=== PATIENT | male | born 1995 | race Caucasian/White ===

== ENCOUNTER 2019-05-02 12:09 | Emergency (ER) | payer BC, OTHER ==
[~2019-05-02] VITALS: Ht 177.8 cm; Wt 149.2 kg
--- NOTE | 2019-05-02 12:40 | Diagnostic Imaging Report ---
INDICATION: Abdominal pain. TIME OF EXAM: 12:07 PM The heart size is normal. Lungs are clear. No free air is detected. The bowel gas pattern is nonobstructive. No pathologic calcifications are seen. IMPRESSION: No acute abnormality is detected. Dictated by: Dictated on workstation # [id number]
--- NOTE | 2019-05-02 13:37 | ED GI ---
General Chief Complaint: Abdominal/GI Problems Stated Complaint: COMSTIPATION Nursing Triage Note: Patient reports he has been constipated for 9-10 days, states he has taken mag citrate, dulcolax, and 2 tap water enemas at home without good results. He states he went to walk-in care two days ago and was told to take miralax, so he took the max daily dose for last two days without good results. He states his stools are clear liquid. He reports he is still eating and drinking normally, denies any nausea/vomiting, states some mild intermittent abdominal and back pain. States he was told by walk-in care to come to the ED if he had not had a bowel movement in 48 hours. Sepsis Screen: No Definite Risk Source of Information: Patient History of Present Illness Date Seen by Provider: May 02, 2019 Time Seen by Provider: 13:37 Initial Comments 24-year-old male presenting with complaints that he has not had a good bowel movement for at least 9-10 days. He denies having any abdominal pain or nausea or vomiting. He also denies any change in his diet. He was having some right posterior flank pain and there some concern he might have a urinary tract infection but when he was seen 2 days ago in the urgent care his urine was clear. They did an x-ray and told him that he had a large ball of stool and to aggressively take MiraLAX until clear. He had been taking several doses of MiraLAX and was only getting watery liquid out. He denied any large amount of stool coming out. He was continuing to eat and drink without any abdominal pain or nausea or vomiting. His right flank pain was resolved after starting the MiraLAX. However he was told if he didn't have a large amount of stool come out by morning to come to the emergency department. Allergies and Home Medications Allergies Coded Allergies: No Known Drug Allergies (Unverified , 05/02/19) Patient Home Medication List Home Medication List Reviewed: Yes Review of Systems Review of Systems Constitutional: No chills, No dizziness, No fever, No malaise EENTM: No Symptoms Reported Respiratory: No Symptoms Reported Cardiovascular: No Symptoms Reported Gastrointestinal: See HPI, Abdomen Distended (since taken the MiraLAX and multiple laxatives he has had increased bloating and gas); Denies Abdominal Pain, Denies Blood Streaked Stools; Constipated; Denies Difficulty Swallowing, Denies Nausea, Denies Poor Appetite, Denies Poor Fluid Intake, Denies Rectal Bleeding, Denies Vomiting Genitourinary: No Symptoms Reported Musculoskeletal: no symptoms reported Skin: no symptoms reported Psychiatric/Neurological: No Symptoms Reported Endocrine: No Symptoms Reported Past Dvixcea-Kgzisv-Csrbef Hx Past Med/Social Hx: Reviewed Nursing Past Med/Soc Hx Patient Social History Alcohol Use: Denies Use Recreational Drug Use: No Smoking Status: Never a Smoker 2nd Hand Smoke Exposure: No Recent Foreign Travel: No Contact w/Someone Who Travel: No Recent Infectious Disease Expo: No Recent Hopitalizations: No Physical Abuse: No Sexual Abuse: No Mistreated: No Fear: No Seasonal Allergies Seasonal Allergies: No Past Medical History Surgeries: Yes Adenoidectomy, Tonsillectomy Respiratory: No Cardiac: No Neurological: No Genitourinary: No Gastrointestinal: No Musculoskeletal: No Endocrine: No HEENT: No Cancer: No Psychosocial: No Integumentary: No Physical Exam Vital Signs Vital Signs - First Documented 05/02/19 12:16 Temp 36.7 Pulse 95 Resp 16 B/P (MAP) 183/114 (137) Pulse Ox 96 O2 Delivery Room Air Capillary Refill : Less Than 3 Seconds Height/Weight/BMI Height: '" Weight: lbs. oz. kg; 47.00 BMI Method: General Appearance: WD/WN, no apparent distress, obese HEENT: PERRL/EOMI, normal ENT inspection, pharynx normal Neck: non-tender, full range of motion, supple Respiratory: chest non-tender, lungs clear, normal breath sounds, no respiratory distress, no accessory muscle use Cardiovascular: normal peripheral pulses, regular rate, rhythm Gastrointestinal: non tender, soft, no pulsatile mass, abnormal bowel sounds (hyperactive) Rectal: deferred Extremities: normal range of motion, non-tender, normal capillary refill Back: no CVA tenderness Neurologic/Psychiatric: alert, normal mood/affect, oriented x 3 Skin: normal color, warm/dry Progress/Results/Core Measures Results/Orders My Orders Orders - MARY GALAVIZ MD Acute Abd Series (05/02/19 12:21) Vital Signs/I&O 05/02/19 05/02/19 12:16 14:30 Temp 36.7 Pulse 95 77 Resp 16 18 B/P (MAP) 183/114 (137) 142/85 Pulse Ox 96 98 O2 Delivery Room Air Room Air Blood Pressure Mean: 137 POS Progress Progress Note : Progress Note Acute abdomen series was obtained prior to my evaluation of the patient. This did not show any obstructive pattern or significant amount of stool. He did have increased stool on the right: And had a nonspecific gas pattern. There is no sign of obstruction or free air. I discussed with him and his about other testing such as blood work and CT scan however with him not having any pain and no nausea or vomiting this likely would not show anything significant right now. He could certainly have this done as an outpatient and get established with clinic if he continued to have issues. Since he was not having pain in his exam was benign otherwise he opted to wait and continue with fluids, increase fiber in his diet, and daily MiraLAX. Advised to check through the clinic for establishing primary care. Advised if he started having fever, abdominal pain, nausea and vomiting that he should return for CT scan and more aggressive evaluation Diagnostic Imaging Diagonstic Imaging: Xray Plain Films/CT/US/NM/MRI: abdomen Comments NAME: [facility]ST[facility] REC#: [id number] PT STATUS: REG ER : 1995 PHYSICIAN: MARY GALAVIZ MD ADMIT DATE: 05/02/19/ER FS Draft POSDate of Exam:05/02/19 ACUTE ABD SERIES INDICATION: Abdominal pain. TIME OF EXAM: 12:07 PM The heart size is normal. Lungs are clear. No free air is detected. The bowel gas pattern is nonobstructive. No pathologic calcifications are seen. IMPRESSION: No acute abnormality is detected. Dictated on workstation # [id number] Dict: 05/02/19 1239 Trans: 05/02/19 1240 CV [id number] Interpreted by: TAM RENAE MD Electronically signed by: Departure Impression Primary Impression: Constipation Qualified Codes: K59.00 - Constipation, unspecified Disposition: HOME, SELF-CARE Condition: Stable Departure-Patient Inst. Decision time for Depature: 14:15 Referrals: DEON MERRILL MD (PCP/Family) Primary Care Physician [facility] Patient Instructions: Constipation, Adult (DC), High Fiber Diet Add. Discharge Instructions: Increase the fiber in your diet. Make sure you are drinking plenty of water and electrolyte drinks. Try eating small frequent meals instead of just 1 big meal a day. If you have sharp abdominal pain, nausea with vomiting, or fever then return or seek medical care for further evaluation such as a CT scan of your abdomen. Establish care with a primary provider through the clinic for outpatient testing and follow up for your bowels. All discharge instructions reviewed with patient and/or family. Voiced understanding. Work/School Note: Work Release Form Date Seen in the Emergency Department: May 02, 2019 Return to Work: May 03, 2019 Restrictions: No Restrictions MARY GALAVIZ MD May 02, 2019 13:37 POS
[2019-05-02 14:30] VITALS: BP 142/85
--- OUTSIDE RECORDS SUMMARY | 2019-05-28 13:49 | XMS REPORT | Continuity of Care Document ---
Author Organization Unknown Address Unknown Phone Unavailable Allergies Active Description Code Type Severity Reaction Onset Reported/Identified Relationship to Patient Clinical Status Yes No Known Drug Allergies [id number] Drug Allergy Unknown N/A 05/02/2019 Medications There is no data. Problems Date Dx Coded Attending Type Code Diagnosis Diagnosed By 05/06/2019 ANASTACIA RAUSCH, MARY Bustillo Ot K59.0 0 CONSTIPATION, UNSPECIFIED 05/06/2019 ANASTACIA RAUSCH, MARY Bustillo Ot Z90.8 9 ACQUIRED ABSENCE OF OTHER ORGANS Procedures There is no data. Results There is no data. Encounters ACCT No. Visit Date/Time Discharge Status Pt. Type Provider Facility Loc./Unit Complaint [id number] 03/05/2019 07:00:00 03/05/2019 23:59:5 9 [facility] [id number] 05/02/2019 12:12:00 019 14:30:00 DIS Outpatient MARY GALAVIZ MD [facility] ER FS COMSTIPATION
== END 2019-05-02 14:30 | disposition home or self-care (01) ==
LOC: EDUNIT# 12:09 → ER FS 12:12
DX: K59.00 Constipation, unspecified (principal); Z90.89 Acquired absence of other organs
CPT/HCPCS: 74022